=== PATIENT | female | born 1965 | race Caucasian/White ===

== ENCOUNTER 2018-03-05 18:25 | Inpatient (IN) | payer OTHER ==
[~2018-03-05] VITALS: Ht 165.1 cm; Wt 99.3 kg
[~2018-03-05 18:25] MED LIST: CHILDREN'S ASPI81 MG PO; CYCLOBENZAPRINE5 MG PO; EFFEXOR XR150 MG PO; FENOFIBRATE134 MG PO; GLUCOPHAGE500 MG PO; IBUPROFEN600 MG PO; NEURONTIN 300300 MG PO; PLAVIX75 MG PO; PREVACID30 MG PO; STOOL SOFTENER240 MG PO; TENORMIN50 MG PO; VOLTAREN75 MG PO; ZANTAC150 MG PO; ZYLOPRIM300 MG PO
[2018-03-05 19:19] LABS: BASOPHILS 0.4 % (0-2); EOSINOPHILS 4.5 % (0-7); HEMATOCRIT 35.1 % (36.0-48.0); IMMATURE GRANULOCYTES 0.3 % (0-5); MCH 31.9 pg (26.0-34.0); MCHC 34.2 g/dL (31.0-37.0); MCV 93.4 fL (80.0-100.0); MEAN PLATELET VOLUME 9.4 fL (7.4-10.4); MONOCYTES 6.4 % (2-11); NEUTROPHILS 46.4 % (40-80); PLATELET COUNT 187 10x3/uL (130-400); RBC 3.76 10x6/uL (4.00-5.40); RDW 12.9 % (11.5-14.5); WBC 7.3 10x3/uL (4.8-10.8)
[2018-03-05 19:34] LABS: ALBUMIN 3.2 g/dL (3.4-5.0); ANION GAP 11.1 mmol/L (8-16); BILIRUBIN - TOTAL 0.4 mg/dL (0.2-1.3); CALCIUM 8.3 mg/dL (8.5-10.1); CARBON DIOXIDE 26.2 mmol/L (21.0-32.0); CREATININE - SERUM 1.1 mg/dL (0.6-1.3); POTASSIUM - SERUM 4.3 mmol/L (3.5-5.1); PROTEIN - SERUM 6.3 g/dL (6.4-8.2)
[2018-03-05 20:23] LABS: INR 1.12 (0.85-1.17)
[2018-03-05 22:00] VITALS: BP 131/77
[2018-03-05 22:15] VITALS: BP 135/73
[2018-03-05 22:30] VITALS: BP 125/68
[2018-03-05 22:45] VITALS: BP 131/68
[2018-03-05 23:00] VITALS: BP 136/74
[2018-03-06] VITALS (15 sets, daily range): BP systolic 120–155; BP diastolic 60–94; Ht 165.1 cm; Wt 99.3 kg
[2018-03-06 00:17] LABS: BASOPHILS 0.8 % (0-2); EOSINOPHILS 5.2 % (0-7); HEMATOCRIT 34.1 % (36.0-48.0); HEMOGLOBIN 11.7 g/dL (12-16); IMMATURE GRANULOCYTES 0.1 % (0-5); LYMPHOCYTES 46.9 % (15-50); MCH 32.1 pg (26.0-34.0); MCHC 34.3 g/dL (31.0-37.0); MCV 93.4 fL (80.0-100.0); MEAN PLATELET VOLUME 9.4 fL (7.4-10.4); MONOCYTES 7.4 % (2-11); NEUTROPHILS 39.6 % (40-80); PLATELET COUNT 176 10x3/uL (130-400); RBC 3.65 10x6/uL (4.00-5.40); RDW 12.8 % (11.5-14.5); WBC 7.2 10x3/uL (4.8-10.8)
[2018-03-06 04:35] LABS: BASOPHILS 0.5 % (0-2); EOSINOPHILS 6.1 % (0-7); HEMOGLOBIN 11.8 g/dL (12-16); IMMATURE GRANULOCYTES 0.3 % (0-5); LYMPHOCYTES 46.4 % (15-50); MCH 31.6 pg (26.0-34.0); MCHC 33.7 g/dL (31.0-37.0); MCV 93.8 fL (80.0-100.0); MEAN PLATELET VOLUME 9.6 fL (7.4-10.4); NEUTROPHILS 38.7 % (40-80); PLATELET COUNT 189 10x3/uL (130-400); RBC 3.73 10x6/uL (4.00-5.40); RDW 12.9 % (11.5-14.5); WBC 6.3 10x3/uL (4.8-10.8)
[2018-03-06] MEDS ORDERED: OXYBUTYNIN CHLOR5 MG PO (13:53)
[2018-03-06] MEDS ORDERED: BACTRIM DS TABL1 TAB PO (13:54)
[2018-03-06] MEDS ORDERED: CARAFATE1 G (13:54)
[2018-03-06] MEDS ORDERED: NORVASC2.5 MG PO (13:55)
[2018-03-06 19:11] LABS: APPEARANCE CLEAR (CLEAR); BILIRUBIN NEGATIVE (NEGATIVE); COLOR YELLOW (YELLOW); GLUCOSE NEGATIVE (NEGATIVE); KETONE NEGATIVE (NEGATIVE); NITRITE NEGATIVE (NEGATIVE); PROTEIN NEGATIVE (NEGATIVE); UROBILINOGEN NORMAL (NORMAL)
[2018-03-07 01:46] VITALS: BP 127/62
[2018-03-07 05:05] VITALS: BP 105/51
[2018-03-07 06:29] LABS: BASOPHILS 0.4 % (0-2); EOSINOPHILS 5.5 % (0-7); HEMATOCRIT 36.2 % (36.0-48.0); HEMOGLOBIN 12.1 g/dL (12-16); IMMATURE GRANULOCYTES 0.1 % (0-5); LYMPHOCYTES 47.9 % (15-50); MCH 31.4 pg (26.0-34.0); MCHC 33.4 g/dL (31.0-37.0); MEAN PLATELET VOLUME 9.7 fL (7.4-10.4); NEUTROPHILS 38.1 % (40-80); PLATELET COUNT 191 10x3/uL (130-400); RBC 3.85 10x6/uL (4.00-5.40); RDW 12.9 % (11.5-14.5)
[2018-03-07 06:49] LABS: ANION GAP 11.1 mmol/L (8-16); CALCIUM 9.4 mg/dL (8.5-10.1); CARBON DIOXIDE 28.9 mmol/L (21.0-32.0); CREATININE - SERUM 1.1 mg/dL (0.6-1.3)
[2018-03-07 08:23] VITALS: BP 136/70
[2018-03-07 11:48] VITALS: BP 100/50
== END 2018-03-07 14:11 | disposition home or self-care (01) | DRG 920 ==
LOC: D.ER 18:25 → D.M2 20:16 → D.ICU 20:16 → D.M2 03-06 16:01
PROVIDERS: Emergency Medicine; Family Medicine; Nurse Practitioner Family
DX: K91.840 Postprocedural hemorrhage of a digestive system organ or structure following a digestive system procedure (principal); D62 Acute posthemorrhagic anemia; Y83.8 Other surgical procedures as the cause of abnormal reaction of the patient, or of later complication, without mention of misadventure at the time of the procedure; E11.40 Type 2 diabetes mellitus with diabetic neuropathy, unspecified; I10 Essential (primary) hypertension; I48.0 Paroxysmal atrial fibrillation; I25.10 Atherosclerotic heart disease of native coronary artery without angina pectoris; E86.0 Dehydration